=== PATIENT | male | born 1945 | race Caucasian/White ===

== ENCOUNTER → 2021-11-18 | Outpatient (REF) | payer MEDICARE | LOC: M SMT PRO 09:10 | PROVIDERS: ATTEND Urology | DX: C61 Malignant neoplasm of prostate (principal); R97.20 Elevated prostate specific antigen [PSA] ==

== ENCOUNTER → 2021-12-22 | Outpatient (CLI) | payer MEDICARE ==
[~2021-12-22] MED LIST: AMLO1TAB25; CARV3.12; INDA125TA; LISI40TA4; OMEP-173; ROSU40TA4; WARF-20; ZOLO100T
== END ==
LOC: M ONCR 14:19
PROVIDERS: ATTEND General Practice
DX: C61 Malignant neoplasm of prostate (principal); Z79.01 Long term (current) use of anticoagulants; Z80.42 Family history of malignant neoplasm of prostate; Z87.891 Personal history of nicotine dependence; Z88.0 Allergy status to penicillin

== ENCOUNTER 2021-12-29 13:48 | Outpatient (RCR) | payer MEDICARE | END 2022-01-07 | LOC: M ONCR 13:48 | PROVIDERS: ATTEND General Practice | DX: C61 Malignant neoplasm of prostate (principal) ==

== ENCOUNTER 2022-02-05 14:21 | Outpatient (RCR) | payer MEDICARE ==
[2022-02-08] MEDS ORDERED: FLOM0.4C39 PO ×2 (15:16)
== END 2022-02-06 ==
LOC: M ONCR 14:21
PROVIDERS: ATTEND General Practice
DX: C61 Malignant neoplasm of prostate (principal)

== ENCOUNTER 2022-02-18 14:21 | Outpatient (RCR) | payer MEDICARE ==
[~2022-02-18 14:21] MED LIST changes: +FLOM0.4C39 PO
== END 2022-03-09 ==
LOC: M ONCR 14:21
PROVIDERS: ATTEND General Practice
DX: C61 Malignant neoplasm of prostate (principal)

== ENCOUNTER → 2022-05-28 | Outpatient (CLI) | payer MEDICARE ==
[~2022-05-28] MED LIST changes: +INDA1.253; -INDA125TA
== END ==
LOC: M ONCR 14:21
PROVIDERS: ATTEND General Practice
DX: C61 Malignant neoplasm of prostate (principal); Z92.3 Personal history of irradiation; Z87.891 Personal history of nicotine dependence; Z88.0 Allergy status to penicillin; Z79.899 Other long term (current) drug therapy

== ENCOUNTER → 2022-09-10 | Outpatient (REF) | payer MEDICARE | LOC: M SMT 17:22 | PROVIDERS: ATTEND Urology | DX: D18.01 Hemangioma of skin and subcutaneous tissue (principal) ==

== ENCOUNTER → 2022-12-01 | Outpatient (CLI) | payer MEDICARE | LOC: M ONCR 12:52 | PROVIDERS: ATTEND Specialist | DX: C61 Malignant neoplasm of prostate (principal); Z79.01 Long term (current) use of anticoagulants; Z79.818 Long term (current) use of other agents affecting estrogen receptors and estrogen levels; Z79.899 Other long term (current) drug therapy; Z87.891 Personal history of nicotine dependence; Z88.0 Allergy status to penicillin; Z92.3 Personal history of irradiation ==

== ENCOUNTER 2023-05-25 12:56 | Observation (INO) | payer MEDICARE ==
[2023-05-25] VITALS (15 sets, daily range): BP systolic 130–178; BP diastolic 60–78; TEMP 97.9–99.5; O2SAT 88–97
[~2023-05-25] VITALS: Ht 162.6 cm; Wt 61.4 kg
[~2023-05-25 12:56] MED LIST changes: -AMLO1TAB25; +AMLO1TAB25 PO; -CARV3.12; +CARV3.12 PO; -LISI40TA4; +LISI40TA4 PO; -OMEP-173; +OMEP-173 PO; -ROSU40TA4; +ROSU40TA4 PO; -ZOLO100T; +ZOLO100T PO
[2023-05-25 13:38] LABS: BASO # 0.1 10^3/uL (0.0-0.2); BASO % 0.8 % (0.0-1.0); EOS # 0.1 10^3/uL (0.0-0.5); EOS % 1.7 % (0.0-3.0); HEMATOCRIT 23.1 % (42.0-52.0); LYMPH # 0.5 10^3/uL (1.5-5.0); LYMPH % 7.1 % (24.0-44.0); MEAN CORPUSCULAR HEMOGLOBIN 27.1 pg (27.0-33.0); MEAN CORPUSCULAR VOLUME 93.5 fl (80.0-96.0); MONO # 0.7 10^3/uL (0.0-0.8); MONO % 10.6 % (2.0-8.0); NEUTROPHILS % 79.2 % (36.0-66.0); PLATELET COUNT, AUTOMATED 274 10^3/uL (150-450); RED BLOOD COUNT 2.47 10^6/uL (4.30-6.10); WHITE BLOOD COUNT 6.3 10^3/uL (4.0-10.0)
[2023-05-25 13:44] LABS: HEMOGLOBIN 6.7 g/dl (13.5-17.5)
[2023-05-25 14:05] LABS: ALKALINE PHOSPHATASE 94 U/L (46-116); ALT/SGPT 14 U/L (7.0-40); AST/SGOT 11 U/L (<34); BILIRUBIN,DIRECT 0.2 MG/DL (<0.4); BILIRUBIN,TOTAL 0.4 MG/DL (0.3-1.2); BLOOD UREA NITROGEN 14 MG/DL (9-23); CALCIUM LEVEL 8.8 MG/DL (8.3-10.6); CARBON DIOXIDE LEVEL 25 MMOL/L (20-31); CHLORIDE LEVEL 106 MMOL/L (98-107); CK-MB VALUE MASS < 1.0 NG/ML (<3.6); CPK CREATINE PHOSPHOKINASE 35 U/L (46-171); CREATININE FOR GFR 0.73 MG/DL (0.70-1.30); GLOMERULAR FILTRATION RATE > 60.0 (>42); GLUCOSE, FASTING 101 MG/DL (74-106); MB/CK RELATIVE INDEX 2.85 (< OR =4); SODIUM LEVEL 137 MMOL/L (136-145); TOTAL PROTEIN 5.9 G/DL (5.7-8.2)
[2023-05-25 14:07] LABS: THYROID STIMULATING HORMONE 0.842 uIU/ML (0.55-4.78)
[2023-05-25 14:10] LABS: RSV AMPLIFICATION NEGATIVE (NEGATIVE)
[2023-05-25] MEDS ORDERED: MED REC IN PROGRESS XX SCH (14:50)
[2023-05-25 15:04] LABS: INR 1.48; PROTHROMBIN TIME 17.5 SECONDS (12.5-14.5)
[2023-05-25 15:05] LABS: PARTIAL THROMBOPLASTIN TIME 43.7 SECONDS (24.8-34.2)
[2023-05-25] MEDS ORDERED: ACETAMINOPHEN TAB 650MG DOSE (2X325MG) PO PRN (15:30)
[2023-05-25] MEDS ORDERED: FERR32TA PO (15:57)
[2023-05-25] MEDS ORDERED: LEUP7.5KIT IM (15:57)
[2023-05-25] MEDS ORDERED: OYST1TAB PO (15:57)
[2023-05-25] MEDS ORDERED: PRES1CAP PO (15:57)
[2023-05-25] MEDS ORDERED: FURO20TA2 PO (15:57)
[2023-05-25] MEDS ORDERED: ELIQ5TAB PO (15:57)
[2023-05-25] MEDS ORDERED: HOME MED LIST COMPLETE! XX SCH (16:05)
[2023-05-25] MEDS ORDERED: FUROSEMIDE 40MG/4ML VIAL IV ONE (20:10)
[2023-05-25] MEDS: CARVedilol 3.125 MG TAB PO SCH (20:29)
[2023-05-25] MEDS ORDERED: IPRATROPIUM 0.5MG/ALBUTEROL 2.5MG INH SOL UD 3ML (DUONEB) NEB PRN (20:45)
[2023-05-25] MEDS ORDERED: ROSUVASTATIN 10 MG TAB (CRESTOR) PO SCH (21:00)
[2023-05-26 06:00] VITALS: BP 130/58; TEMP 98.1; O2SAT 92
[2023-05-26 06:31] LABS: BLOOD UREA NITROGEN 11 MG/DL (9-23); CALCIUM LEVEL 8.4 MG/DL (8.3-10.6); CARBON DIOXIDE LEVEL 25 MMOL/L (20-31); CHLORIDE LEVEL 103 MMOL/L (98-107); CREATININE FOR GFR 0.66 MG/DL (0.70-1.30); GLOMERULAR FILTRATION RATE > 60.0 (>42); GLUCOSE, FASTING 92 MG/DL (74-106); MAGNESIUM LEVEL 1.9 MG/DL (1.8-2.4); POTASSIUM SERUM 3.3 MMOL/L (3.5-5.1); SODIUM LEVEL 137 MMOL/L (136-145)
[2023-05-26 07:16] LABS: HEMATOCRIT 29.6 % (42.0-52.0); MEAN CORPUSCULAR HEMOGLOBIN 27.9 pg (27.0-33.0); MEAN CORPUSCULAR HGB CONC 31.4 g/dl (32.0-36.5); MEAN CORPUSCULAR VOLUME 88.9 fl (80.0-96.0); PLATELET COUNT, AUTOMATED 243 10^3/uL (150-450); RED BLOOD COUNT 3.33 10^6/uL (4.30-6.10); WHITE BLOOD COUNT 8.2 10^3/uL (4.0-10.0)
[2023-05-26 07:47] LABS: HEMOGLOBIN 9.3 g/dl (13.5-17.5)
[2023-05-26 09:00] VITALS: BP 137/60; O2SAT 90
[2023-05-26] MEDS ORDERED: FUROSEMIDE 20 MG TAB PO SCH (09:00)
[2023-05-26] MEDS ORDERED: OYSTER SHELL CALCIUM 500 MG TAB PO SCH (09:00)
[2023-05-26] MEDS ORDERED: SERTRALINE 100 MG TAB PO SCH (09:00)
[2023-05-26] MEDS ORDERED: OMEPRAZOLE 20MG CAP PO SCH (09:00)
[2023-05-26] MEDS ORDERED: lisinopriL 40MG TAB PO SCH (09:00)
[2023-05-26 09:02] VITALS: BP 137/60
[2023-05-26] MEDS: CARVedilol 3.125 MG TAB PO SCH (09:02)
[2023-05-26 14:00] VITALS: BP 103/54; TEMP 98.1; O2SAT 92
[2023-05-26 14:36] LABS: HEMATOCRIT 32.6 % (42.0-52.0); HEMOGLOBIN 10.1 g/dl (13.5-17.5)
[2023-05-26] MEDS ORDERED: ELIQ2.5T PO (14:39)
[2023-05-27] MEDS ORDERED: FERROUS GLUCONATE 324 MG TAB PO SCH (09:00)
[2023-06-01 15:55] LABS: PROSTATIC SPECIFIC AG MONITOR 0.04 NG/ML (< 4.00)
== END 2023-05-26 16:20 | disposition home or self-care (01) ==
LOC: M ED 12:56 → EDBD 12:56 → M ED INP 15:29 → M MSPAV 16:57
PROVIDERS: ADMIT Family Medicine; ATTEND Family Medicine
DX: D50.0 Iron deficiency anemia secondary to blood loss (chronic) (principal); K92.2 Gastrointestinal hemorrhage, unspecified; Z79.01 Long term (current) use of anticoagulants; K58.9 Irritable bowel syndrome, unspecified; C61 Malignant neoplasm of prostate; Z92.3 Personal history of irradiation; I48.91 Unspecified atrial fibrillation; Z86.73 Personal history of transient ischemic attack (TIA), and cerebral infarction without residual deficits; R06.00 Dyspnea, unspecified; I10 Essential (primary) hypertension; K21.9 Gastro-esophageal reflux disease without esophagitis; E78.5 Hyperlipidemia, unspecified; F41.9 Anxiety disorder, unspecified; Z88.0 Allergy status to penicillin; Z79.899 Other long term (current) drug therapy; Z79.890 Hormone replacement therapy
CPT/HCPCS: 36415; 36430; 71045; 80048; 80076; 82550; 82553; 83605; 83735; 83880; 84153; 84436; 84443; 84484; 85014; 85018; 85025; 85027; 85610; 85730; 86850; 86900; 86901; 86920; 87631; 93005; 93041; 94760; 96374; 99285; G0378; J1940; P9016

== ENCOUNTER 2023-08-13 15:32 | Observation (INO) | payer MEDICARE ==
[~2023-08-13] VITALS: Ht 160 cm; Wt 58.8 kg
[~2023-08-13 15:32] MED LIST changes: +ELIQ2.5T PO; +ELIQ5TAB PO; +FERR32TA PO; +FURO20TA2 PO; +IRON27TA2 PO; +LEUP7.5KIT IM; +OYST1TAB PO; +POTA-298 PO; +PRES10CA2 PO; +PRES1CAP PO
[2023-08-13 17:13] LABS: BASO # 0.1 10^3/uL (0.0-0.2); BASO % 0.8 % (0.0-1.0); EOS # 0.1 10^3/uL (0.0-0.5); EOS % 1.9 % (0.0-3.0); HEMATOCRIT 25.6 % (42.0-52.0); HEMOGLOBIN 7.3 g/dl (13.5-17.5); LYMPH # 0.5 10^3/uL (1.5-5.0); LYMPH % 7.8 % (24.0-44.0); MEAN CORPUSCULAR HEMOGLOBIN 24.6 pg (27.0-33.0); MEAN CORPUSCULAR HGB CONC 28.5 g/dl (32.0-36.5); MEAN CORPUSCULAR VOLUME 86.2 fl (80.0-96.0); MONO # 0.6 10^3/uL (0.0-0.8); MONO % 9.9 % (2.0-8.0); NEUTROPHILS % 79.1 % (36.0-66.0); PLATELET COUNT, AUTOMATED 295 10^3/uL (150-450); RED BLOOD COUNT 2.97 10^6/uL (4.30-6.10); WHITE BLOOD COUNT 6.3 10^3/uL (4.0-10.0)
[2023-08-13 17:27] LABS: INR 1.24; PROTHROMBIN TIME 15.2 SECONDS (12.5-14.5)
[2023-08-13 17:28] LABS: PARTIAL THROMBOPLASTIN TIME 31.8 SECONDS (24.8-34.2)
[2023-08-13 17:35] LABS: RSV AMPLIFICATION NEGATIVE (NEGATIVE)
[2023-08-13 17:36] LABS: ALBUMIN 3.3 G/DL (3.2-5.2); ALKALINE PHOSPHATASE 85 U/L (46-116); ALT/SGPT 21 U/L (7.0-40); AST/SGOT 18 U/L (<34); BILIRUBIN,DIRECT 0.1 MG/DL (<0.4); BILIRUBIN,TOTAL 0.4 MG/DL (0.3-1.2); BLOOD UREA NITROGEN 20 MG/DL (9-23); CALCIUM LEVEL 8.7 MG/DL (8.3-10.6); CARBON DIOXIDE LEVEL 25 MMOL/L (20-31); CHLORIDE LEVEL 108 MMOL/L (98-107); CREATININE FOR GFR 0.77 MG/DL (0.70-1.30); GLOMERULAR FILTRATION RATE > 60.0 (>42); GLUCOSE, FASTING 97 MG/DL (74-106); IRON (FE) 10 UG/DL (65-175); PERCENT SATURATION 2.6 % (19.7-50.0); POTASSIUM SERUM 4.1 MMOL/L (3.5-5.1); SODIUM LEVEL 142 MMOL/L (136-145); TOTAL IRON BINDING CAPACITY 382 UG/DL (250-425); TOTAL PROTEIN 6.1 G/DL (5.7-8.2)
[2023-08-13] MEDS ORDERED: VITACAP8 PO (17:47)
[2023-08-13] MEDS ORDERED: ACETAMINOPHEN TAB 650MG DOSE (2X325MG) PO PRN (18:25)
[2023-08-13] MEDS ORDERED: ACETAMINOPHEN TAB 650MG DOSE (2X325MG) PO ONE (18:55)
[2023-08-13] MEDS ORDERED: diphenhydrAMINE 25MG CAP PO ONE (18:55)
[2023-08-13] MEDS ORDERED: NS 1,000 ML IV SCH (18:55)
[2023-08-13] MEDS ORDERED: HOME MED LIST COMPLETE! XX SCH (19:30)
[2023-08-13 20:10] VITALS: BP 174/88; TEMP 97.4; O2SAT 93
[2023-08-13] MEDS: ROSUVASTATIN 10 MG TAB (CRESTOR) PO SCH (21:08)
[2023-08-13] MEDS: CARVedilol 3.125 MG TAB PO SCH (21:09)
[2023-08-13] MEDS: APIXABAN 2.5 MG TAB (ELIQUIS) PO SCH (21:09)
[2023-08-13 21:50] VITALS: BP 132/73; TEMP 98; O2SAT 92
[2023-08-13 22:10] VITALS: BP 129/64; TEMP 98.3; O2SAT 94
[2023-08-13 23:02] VITALS: BP 138/57; TEMP 97.8; O2SAT 96
[2023-08-14] VITALS (13 sets, daily range): BP systolic 104–163; BP diastolic 54–87; TEMP 97.4–98.4; O2SAT 92–97
[2023-08-14 05:14] LABS: HEMATOCRIT 29.1 % (42.0-52.0); MEAN CORPUSCULAR HEMOGLOBIN 26.6 pg (27.0-33.0); MEAN CORPUSCULAR HGB CONC 30.9 g/dl (32.0-36.5); MEAN CORPUSCULAR VOLUME 86.1 fl (80.0-96.0); PLATELET COUNT, AUTOMATED 240 10^3/uL (150-450); RED BLOOD COUNT 3.38 10^6/uL (4.30-6.10); WHITE BLOOD COUNT 5.5 10^3/uL (4.0-10.0)
[2023-08-14 05:26] LABS: ALKALINE PHOSPHATASE 75 U/L (46-116); ALT/SGPT 17 U/L (7.0-40); AST/SGOT 20 U/L (<34); BILIRUBIN,TOTAL 0.9 MG/DL (0.3-1.2); BLOOD UREA NITROGEN 17 MG/DL (9-23); CALCIUM LEVEL 8.2 MG/DL (8.3-10.6); CARBON DIOXIDE LEVEL 24 MMOL/L (20-31); CHLORIDE LEVEL 108 MMOL/L (98-107); GLOMERULAR FILTRATION RATE > 60.0 (>42); GLUCOSE, FASTING 146 MG/DL (74-106); POTASSIUM SERUM 3.4 MMOL/L (3.5-5.1); SODIUM LEVEL 141 MMOL/L (136-145); TOTAL PROTEIN 5.4 G/DL (5.7-8.2)
[2023-08-14 07:32] LABS: FERRITIN 19.1 NG/ML (10.5-307.3)
[2023-08-14] MEDS ORDERED: POTASSIUM CHLORIDE 10MEQ SR TABLET PO ONE ×2 (09:05→13:00)
[2023-08-14] MEDS: lisinopriL 40MG TAB PO SCH (09:09)
[2023-08-14] MEDS: FUROSEMIDE 20 MG TAB PO SCH (09:09)
[2023-08-14] MEDS: SERTRALINE 100 MG TAB PO SCH (09:09)
[2023-08-14] MEDS: OMEPRAZOLE 20MG CAP PO SCH (09:09)
[2023-08-14] MEDS: CARVedilol 3.125 MG TAB PO SCH ×2 (09:09→20:33)
[2023-08-14] MEDS: APIXABAN 2.5 MG TAB (ELIQUIS) PO SCH ×2 (09:09→20:32)
[2023-08-14] MEDS ORDERED: FUROSEMIDE 20MG/2ML VIAL IV ONE (10:00)
[2023-08-14] MEDS ORDERED: INFLUENZA QUADRIVALENT PF VACCINE 0.5ML SYRINGE IM.IMMUN ONE (12:00)
[2023-08-14] MEDS ORDERED: FLUZONE HIGH DOSE(65YR UP)QUAD/PF 240MCG/0.7ML SYRINGE IM.IMMUN ONE (12:00)
[2023-08-14 12:10] LABS: HEMATOCRIT 30.8 % (42.0-52.0); HEMOGLOBIN 9.3 g/dl (13.5-17.5)
[2023-08-14 19:15] LABS: HEMATOCRIT 32.1 % (42.0-52.0); HEMOGLOBIN 9.8 g/dl (13.5-17.5); MEAN CORPUSCULAR HEMOGLOBIN 26.1 pg (27.0-33.0); MEAN CORPUSCULAR HGB CONC 30.5 g/dl (32.0-36.5); MEAN CORPUSCULAR VOLUME 85.4 fl (80.0-96.0); PLATELET COUNT, AUTOMATED 269 10^3/uL (150-450); RED BLOOD COUNT 3.76 10^6/uL (4.30-6.10); WHITE BLOOD COUNT 6.6 10^3/uL (4.0-10.0)
[2023-08-14 19:38] LABS: BLOOD UREA NITROGEN 17 MG/DL (9-23); CALCIUM LEVEL 8.5 MG/DL (8.3-10.6); CARBON DIOXIDE LEVEL 25 MMOL/L (20-31); CHLORIDE LEVEL 109 MMOL/L (98-107); GLOMERULAR FILTRATION RATE > 60.0 (>42); GLUCOSE, FASTING 140 MG/DL (74-106); POTASSIUM SERUM 3.6 MMOL/L (3.5-5.1); SODIUM LEVEL 142 MMOL/L (136-145)
[2023-08-14] MEDS: ROSUVASTATIN 10 MG TAB (CRESTOR) PO SCH (20:32)
[2023-08-15 05:02] VITALS: BP 122/60; TEMP 98.1; O2SAT 95
[2023-08-15 05:57] LABS: BLOOD UREA NITROGEN 14 MG/DL (9-23); CALCIUM LEVEL 8.5 MG/DL (8.3-10.6); CARBON DIOXIDE LEVEL 23 MMOL/L (20-31); CHLORIDE LEVEL 111 MMOL/L (98-107); CREATININE FOR GFR 0.65 MG/DL (0.70-1.30); GLOMERULAR FILTRATION RATE > 60.0 (>42); GLUCOSE, FASTING 100 MG/DL (74-106); POTASSIUM SERUM 3.6 MMOL/L (3.5-5.1); SODIUM LEVEL 143 MMOL/L (136-145)
[2023-08-15 06:15] LABS: BASO # 0.1 10^3/uL (0.0-0.2); BASO % 0.9 % (0.0-1.0); EOS # 0.2 10^3/uL (0.0-0.5); EOS % 3.5 % (0.0-3.0); HEMATOCRIT 29.7 % (42.0-52.0); HEMOGLOBIN 9.1 g/dl (13.5-17.5); LYMPH # 0.5 10^3/uL (1.5-5.0); LYMPH % 7.1 % (24.0-44.0); MEAN CORPUSCULAR HEMOGLOBIN 26.3 pg (27.0-33.0); MEAN CORPUSCULAR HGB CONC 30.6 g/dl (32.0-36.5); MEAN CORPUSCULAR VOLUME 85.8 fl (80.0-96.0); MONO # 0.8 10^3/uL (0.0-0.8); MONO % 11.3 % (2.0-8.0); NEUTROPHILS # 5.3 10^3/uL (1.5-8.5); NEUTROPHILS % 76.8 % (36.0-66.0); PLATELET COUNT, AUTOMATED 250 10^3/uL (150-450); RED BLOOD COUNT 3.46 10^6/uL (4.30-6.10); WHITE BLOOD COUNT 6.9 10^3/uL (4.0-10.0)
[2023-08-15] MEDS ORDERED: IRON27TA2 PO (07:12)
[2023-08-15] MEDS ORDERED: COLA100C5 PO (07:12)
[2023-08-15] MEDS: OMEPRAZOLE 20MG CAP PO SCH (08:42)
[2023-08-15] MEDS: APIXABAN 2.5 MG TAB (ELIQUIS) PO SCH (08:42)
[2023-08-15] MEDS: SERTRALINE 100 MG TAB PO SCH (08:42)
[2023-08-15] MEDS: FUROSEMIDE 20 MG TAB PO SCH (08:42)
[2023-08-15] MEDS: CARVedilol 3.125 MG TAB PO SCH (08:43)
[2023-08-15 08:44] VITALS: BP 163/70
[2023-08-15] MEDS: lisinopriL 40MG TAB PO SCH (08:44)
[2023-08-15] MEDS ORDERED: INFLUENZA QUADRIVALENT PF VACCINE 0.5ML SYRINGE IM.IMMUN ONE (11:00)
== END 2023-08-15 11:50 | disposition home or self-care (01) ==
LOC: M ED 15:32 → EDBD 15:32 → M ED INP 15:33 → ENRESERV 19:26 → M PCU 19:58 → M MS5PR 08-14 15:49
PROVIDERS: ADMIT Family Medicine; ATTEND Internal Medicine Nephrology
DX: D50.0 Iron deficiency anemia secondary to blood loss (chronic) (principal); K92.2 Gastrointestinal hemorrhage, unspecified; K62.7 Radiation proctitis; K57.90 Diverticulosis of intestine, part unspecified, without perforation or abscess without bleeding; K63.5 Polyp of colon; I48.19 Other persistent atrial fibrillation; Z86.73 Personal history of transient ischemic attack (TIA), and cerebral infarction without residual deficits; E87.70 Fluid overload, unspecified; I10 Essential (primary) hypertension; E78.5 Hyperlipidemia, unspecified; F41.9 Anxiety disorder, unspecified; F32.A Depression, unspecified; R06.02 Shortness of breath; R53.1 Weakness; Z88.0 Allergy status to penicillin; Z79.899 Other long term (current) drug therapy; Z79.01 Long term (current) use of anticoagulants; Z23 Encounter for immunization
CPT/HCPCS: 36415; 36430; 71045; 80048; 80053; 80076; 82728; 83550; 85014; 85018; 85025; 85027; 85384; 85610; 85730; 86850; 86900; 86901; 86920; 87631; 90686; 93005; 93041; 94760; 96374; 99285; G0008; G0378; J1940; P9016

== ENCOUNTER 2023-10-09 14:12 | Observation (INO) | payer MEDICARE ==
[~2023-10-09] VITALS: Ht 162.6 cm; Wt 59.4 kg
[2023-10-09] VITALS (9 sets, daily range): BP systolic 133–164; BP diastolic 61–78; TEMP 97–98.8; O2SAT 95–100
[~2023-10-09 14:12] MED LIST changes: +COLA100C5 PO; +VITACAP8 PO
[2023-10-09 15:10] LABS: BASO # 0.1 10^3/uL (0.0-0.2); BASO % 0.9 % (0.0-1.0); EOS # 0.1 10^3/uL (0.0-0.5); EOS % 1.4 % (0.0-3.0); LYMPH # 0.5 10^3/uL (1.5-5.0); LYMPH % 7.4 % (24.0-44.0); MEAN CORPUSCULAR HEMOGLOBIN 30.3 pg (27.0-33.0); MEAN CORPUSCULAR HGB CONC 29.6 g/dl (32.0-36.5); MEAN CORPUSCULAR VOLUME 102.3 fl (80.0-96.0); MONO # 0.6 10^3/uL (0.0-0.8); MONO % 8.5 % (2.0-8.0); NEUTROPHILS # 5.4 10^3/uL (1.5-8.5); NEUTROPHILS % 81.2 % (36.0-66.0); PLATELET COUNT, AUTOMATED 279 10^3/uL (150-450); RED BLOOD COUNT 2.64 10^6/uL (4.30-6.10); WHITE BLOOD COUNT 6.6 10^3/uL (4.0-10.0)
[2023-10-09 15:23] LABS: LIPASE 40 U/L (12-53)
[2023-10-09 15:25] LABS: ALBUMIN 3.4 G/DL (3.2-5.2); ALKALINE PHOSPHATASE 95 U/L (46-116); ALT/SGPT 30 U/L (7.0-40); AST/SGOT 18 U/L (<34); BILIRUBIN,DIRECT < 0.1 MG/DL (<0.4); BILIRUBIN,TOTAL 0.4 MG/DL (0.3-1.2); BLOOD UREA NITROGEN 17 MG/DL (9-23); CALCIUM LEVEL 8.7 MG/DL (8.3-10.6); CARBON DIOXIDE LEVEL 27 MMOL/L (20-31); CHLORIDE LEVEL 107 MMOL/L (98-107); CREATININE FOR GFR 0.75 MG/DL (0.70-1.30); GLOMERULAR FILTRATION RATE > 60.0 (>42); GLUCOSE, FASTING 98 MG/DL (74-106); POTASSIUM SERUM 4.1 MMOL/L (3.5-5.1); SODIUM LEVEL 139 MMOL/L (136-145)
[2023-10-09 15:32] LABS: INR 1.17; PARTIAL THROMBOPLASTIN TIME 31.2 SECONDS (24.8-34.2); PROTHROMBIN TIME 14.5 SECONDS (12.5-14.5)
[2023-10-09] MEDS ORDERED: MED REC IN PROGRESS XX SCH (16:30)
[2023-10-09] MEDS ORDERED: ACETAMINOPHEN TAB 650MG DOSE (2X325MG) PO PRN (16:40)
[2023-10-09] MEDS ORDERED: VITATAB73 PO (17:11)
[2023-10-09] MEDS ORDERED: HOME MED LIST COMPLETE! XX SCH (17:15)
[2023-10-09] MEDS ORDERED: ROSUVASTATIN 10 MG TAB (CRESTOR) PO SCH (21:00)
[2023-10-09] MEDS: CARVedilol 3.125 MG TAB PO SCH (21:17)
[2023-10-09] MEDS: APIXABAN 2.5 MG TAB (ELIQUIS) PO SCH (21:17)
[2023-10-10 03:51] VITALS: BP 144/66; TEMP 98.3; O2SAT 95
[2023-10-10 06:30] LABS: BASO # 0.1 10^3/uL (0.0-0.2); EOS # 0.1 10^3/uL (0.0-0.5); EOS % 1.6 % (0.0-3.0); HEMATOCRIT 31.3 % (42.0-52.0); HEMOGLOBIN 9.8 g/dl (13.5-17.5); LYMPH # 0.4 10^3/uL (1.5-5.0); LYMPH % 7.6 % (24.0-44.0); MEAN CORPUSCULAR HEMOGLOBIN 29.7 pg (27.0-33.0); MEAN CORPUSCULAR HGB CONC 31.3 g/dl (32.0-36.5); MEAN CORPUSCULAR VOLUME 94.8 fl (80.0-96.0); MONO # 0.6 10^3/uL (0.0-0.8); MONO % 9.8 % (2.0-8.0); NEUTROPHILS # 4.6 10^3/uL (1.5-8.5); NEUTROPHILS % 79.7 % (36.0-66.0); PLATELET COUNT, AUTOMATED 217 10^3/uL (150-450); WHITE BLOOD COUNT 5.8 10^3/uL (4.0-10.0)
[2023-10-10 06:56] LABS: BLOOD UREA NITROGEN 17 MG/DL (9-23); CALCIUM LEVEL 8.4 MG/DL (8.3-10.6); CARBON DIOXIDE LEVEL 25 MMOL/L (20-31); CHLORIDE LEVEL 111 MMOL/L (98-107); CREATININE FOR GFR 0.68 MG/DL (0.70-1.30); GLOMERULAR FILTRATION RATE > 60.0 (>42); GLUCOSE, FASTING 98 MG/DL (74-106); POTASSIUM SERUM 4.2 MMOL/L (3.5-5.1); SODIUM LEVEL 142 MMOL/L (136-145)
[2023-10-10 08:00] VITALS: BP 168/74; TEMP 97.9; O2SAT 98
[2023-10-10 08:46] VITALS: BP 146/86
[2023-10-10] MEDS: APIXABAN 2.5 MG TAB (ELIQUIS) PO SCH (08:46)
[2023-10-10] MEDS: CARVedilol 3.125 MG TAB PO SCH (08:46)
[2023-10-10] MEDS ORDERED: FUROSEMIDE 20 MG TAB PO SCH (09:00)
[2023-10-10] MEDS ORDERED: SERTRALINE 100 MG TAB PO SCH (09:00)
[2023-10-10] MEDS ORDERED: lisinopriL 40MG TAB PO SCH (09:00)
[2023-10-10] MEDS ORDERED: OMEPRAZOLE 20MG CAP PO SCH (09:00)
== END 2023-10-10 10:44 | disposition home or self-care (01) ==
LOC: EDBD 14:12 → M ED 14:12 → M ED INP 14:13 → M PCU 17:58
PROVIDERS: ADMIT Internal Medicine; ATTEND Internal Medicine
DX: D64.9 Anemia, unspecified (principal); K62.5 Hemorrhage of anus and rectum; K62.7 Radiation proctitis; Z85.46 Personal history of malignant neoplasm of prostate; I48.91 Unspecified atrial fibrillation; Z86.73 Personal history of transient ischemic attack (TIA), and cerebral infarction without residual deficits; I10 Essential (primary) hypertension; E78.5 Hyperlipidemia, unspecified; K21.9 Gastro-esophageal reflux disease without esophagitis; F39 Unspecified mood [affective] disorder; R06.02 Shortness of breath; Z87.891 Personal history of nicotine dependence; Z88.0 Allergy status to penicillin; Z79.899 Other long term (current) drug therapy; Z79.01 Long term (current) use of anticoagulants
CPT/HCPCS: 36415; 36430; 80048; 80076; 83690; 83735; 85025; 85610; 85730; 86850; 86900; 86901; 86920; 87635; 93005; 93041; 97161; 97530; 99285; G0378; P9016

== ENCOUNTER 2023-10-29 14:23 | Observation (INO) | payer MEDICARE ==
[~2023-10-29] VITALS: Ht 160 cm; Wt 60.5 kg
[2023-10-29] VITALS (8 sets, daily range): BP systolic 130–176; BP diastolic 59–81; TEMP 97.4–99.4; O2SAT 91–96
[~2023-10-29 14:23] MED LIST changes: +VITATAB73 PO
[2023-10-29 15:19] LABS: BASO # 0.1 10^3/uL (0.0-0.2); BASO % 0.7 % (0.0-1.0); EOS # 0.1 10^3/uL (0.0-0.5); EOS % 1.4 % (0.0-3.0); HEMATOCRIT 23.8 % (42.0-52.0); HEMOGLOBIN 7.2 g/dl (13.5-17.5); LYMPH # 0.4 10^3/uL (1.5-5.0); LYMPH % 5.4 % (24.0-44.0); MEAN CORPUSCULAR HEMOGLOBIN 28.5 pg (27.0-33.0); MEAN CORPUSCULAR HGB CONC 30.3 g/dl (32.0-36.5); MEAN CORPUSCULAR VOLUME 94.1 fl (80.0-96.0); MONO # 0.6 10^3/uL (0.0-0.8); MONO % 8.5 % (2.0-8.0); NEUTROPHILS # 5.9 10^3/uL (1.5-8.5); NEUTROPHILS % 83.6 % (36.0-66.0); PLATELET COUNT, AUTOMATED 308 10^3/uL (150-450); RED BLOOD COUNT 2.53 10^6/uL (4.30-6.10)
[2023-10-29 15:29] LABS: ALBUMIN 3.3 G/DL (3.2-5.2); ALKALINE PHOSPHATASE 85 U/L (46-116); ALT/SGPT 23 U/L (7.0-40); AST/SGOT 17 U/L (<34); BILIRUBIN,TOTAL 0.4 MG/DL (0.3-1.2); BLOOD UREA NITROGEN 15 MG/DL (9-23); CALCIUM LEVEL 8.6 MG/DL (8.3-10.6); CARBON DIOXIDE LEVEL 24 MMOL/L (20-31); CHLORIDE LEVEL 110 MMOL/L (98-107); CREATININE FOR GFR 0.79 MG/DL (0.70-1.30); GLOMERULAR FILTRATION RATE > 60.0 (>42); GLUCOSE, FASTING 98 MG/DL (74-106); POTASSIUM SERUM 4.3 MMOL/L (3.5-5.1); SODIUM LEVEL 141 MMOL/L (136-145); TOTAL PROTEIN 5.9 G/DL (5.7-8.2)
[2023-10-29 15:31] LABS: INR 1.28; PROTHROMBIN TIME 15.6 SECONDS (12.5-14.5)
[2023-10-29 15:32] LABS: PARTIAL THROMBOPLASTIN TIME 33.9 SECONDS (24.8-34.2)
[2023-10-29 15:40] LABS: RSV AMPLIFICATION NEGATIVE (NEGATIVE)
[2023-10-29] MEDS ORDERED: FERR325T3 PO (17:58)
[2023-10-29] MEDS ORDERED: HOME MED LIST COMPLETE! XX SCH (18:05)
[2023-10-29] MEDS: CARVedilol 3.125 MG TAB PO SCH (20:57)
[2023-10-29] MEDS ORDERED: ROSUVASTATIN 10 MG TAB (CRESTOR) PO SCH (21:00)
[2023-10-29 22:54] LABS: HEMATOCRIT 28.2 % (42.0-52.0); HEMOGLOBIN 9.1 g/dl (13.5-17.5)
[2023-10-30 06:16] LABS: HEMATOCRIT 28.2 % (42.0-52.0); HEMOGLOBIN 8.9 g/dl (13.5-17.5); MEAN CORPUSCULAR HEMOGLOBIN 27.9 pg (27.0-33.0); MEAN CORPUSCULAR HGB CONC 31.6 g/dl (32.0-36.5); MEAN CORPUSCULAR VOLUME 88.4 fl (80.0-96.0); PLATELET COUNT, AUTOMATED 272 10^3/uL (150-450); RED BLOOD COUNT 3.19 10^6/uL (4.30-6.10); WHITE BLOOD COUNT 7.4 10^3/uL (4.0-10.0)
[2023-10-30 06:25] VITALS: BP 146/62; TEMP 98.2; O2SAT 89
[2023-10-30] MEDS ORDERED: APIXABAN 2.5 MG TAB (ELIQUIS) PO SCH (09:00)
[2023-10-30] MEDS ORDERED: FERROUS SULFATE 325MG TAB PO SCH (09:00)
[2023-10-30] MEDS ORDERED: OMEPRAZOLE 20MG CAP PO SCH (09:00)
[2023-10-30] MEDS ORDERED: FUROSEMIDE 20 MG TAB PO SCH (09:00)
[2023-10-30] MEDS ORDERED: SERTRALINE 100 MG TAB PO SCH (09:00)
[2023-10-30] MEDS ORDERED: lisinopriL 40MG TAB PO SCH (09:00)
[2023-10-30] MEDS: CARVedilol 3.125 MG TAB PO SCH (09:39)
[2023-10-30 11:35] VITALS: O2SAT 96
== END 2023-10-30 13:37 | disposition home or self-care (01) ==
LOC: M ED 14:23 → EDBD 14:23 → M ED INP 18:07 → M MSPAV 23:24
PROVIDERS: ADMIT Student in an Organized Health Care Education/Training Program; ATTEND Student in an Organized Health Care Education/Training Program
DX: D62 Acute posthemorrhagic anemia (principal); K92.2 Gastrointestinal hemorrhage, unspecified; I48.91 Unspecified atrial fibrillation; Z85.46 Personal history of malignant neoplasm of prostate; Z92.3 Personal history of irradiation; Z86.73 Personal history of transient ischemic attack (TIA), and cerebral infarction without residual deficits; Z20.822 Contact with and (suspected) exposure to COVID-19; Z88.0 Allergy status to penicillin; Z79.899 Other long term (current) drug therapy; Z79.01 Long term (current) use of anticoagulants
CPT/HCPCS: 36415; 36430; 71045; 71046; 80053; 83735; 85014; 85018; 85025; 85027; 85610; 85730; 86850; 86900; 86901; 86920; 87631; 93005; 93041; 94760; 99285; G0378; P9016

== ENCOUNTER 2023-12-19 15:01 | Inpatient (IN) | payer MEDICARE ==
[~2023-12-19] VITALS: Ht 162.6 cm; Wt 57.4 kg
[~2023-12-19 15:01] MED LIST changes: +FERR325T3 PO; +INDA1.253 PO; +LISI10TA22 PO; +MESA50SU PR; +POTA-151 PO
[2023-12-19 16:53] LABS: BASO % 0.4 % (0.0-1.0); EOS # 0.1 10^3/uL (0.0-0.5); EOS % 1.1 % (0.0-3.0); LYMPH # 0.5 10^3/uL (1.5-5.0); LYMPH % 6.4 % (24.0-44.0); MEAN CORPUSCULAR HEMOGLOBIN 22.8 pg (27.0-33.0); MEAN CORPUSCULAR HGB CONC 27.5 g/dl (32.0-36.5); MEAN CORPUSCULAR VOLUME 82.9 fl (80.0-96.0); MONO # 0.7 10^3/uL (0.0-0.8); MONO % 8.9 % (2.0-8.0); NEUTROPHILS # 6.1 10^3/uL (1.5-8.5); NEUTROPHILS % 82.5 % (36.0-66.0); PLATELET COUNT, AUTOMATED 296 10^3/uL (150-450); RED BLOOD COUNT 2.28 10^6/uL (4.30-6.10); WHITE BLOOD COUNT 7.4 10^3/uL (4.0-10.0)
[2023-12-19 17:03] LABS: HEMATOCRIT 18.9 % (42.0-52.0); HEMOGLOBIN 5.2 g/dl (13.5-17.5)
[2023-12-19 17:17] LABS: INR 1.43; PARTIAL THROMBOPLASTIN TIME 33.3 SECONDS (24.8-34.2)
[2023-12-19 17:22] LABS: ALBUMIN 3.2 G/DL (3.2-5.2); ALKALINE PHOSPHATASE 75 U/L (46-116); ALT/SGPT 14 U/L (7.0-40); AST/SGOT 14 U/L (<34); BILIRUBIN,DIRECT 0.1 MG/DL (<0.4); BILIRUBIN,TOTAL 0.4 MG/DL (0.3-1.2); BLOOD UREA NITROGEN 19 MG/DL (9-23); CALCIUM LEVEL 8.4 MG/DL (8.3-10.6); CARBON DIOXIDE LEVEL 21 MMOL/L (20-31); CHLORIDE LEVEL 107 MMOL/L (98-107); GLOMERULAR FILTRATION RATE > 60.0 (>42); GLUCOSE, FASTING 91 MG/DL (74-106); POTASSIUM SERUM 4.1 MMOL/L (3.5-5.1); SODIUM LEVEL 137 MMOL/L (136-145); TOTAL PROTEIN 5.7 G/DL (5.7-8.2)
[2023-12-19 18:07] VITALS: BP 133/61; TEMP 98.7; O2SAT 96
[2023-12-19] MEDS ORDERED: EQL50TAB2 PO (18:33)
[2023-12-19] MEDS ORDERED: LISI10TA22 PO (18:33)
[2023-12-19] MEDS ORDERED: MESA50SU PR (18:33)
[2023-12-19] MEDS ORDERED: HOME MED LIST COMPLETE! XX SCH (18:35)
[2023-12-19 20:10] VITALS: BP 133/70; TEMP 99.7; O2SAT 94
[2023-12-19 20:25] VITALS: BP 159/71; TEMP 99.1; O2SAT 94
[2023-12-19 21:44] VITALS: BP 176/80; TEMP 99; O2SAT 96
[2023-12-19 22:51] VITALS: BP 172/72; TEMP 97.8; O2SAT 94
[2023-12-19] MEDS: MESALAMINE 1,000 MG SUPP PR SCH (23:56)
[2023-12-20] VITALS (8 sets, daily range): BP systolic 107–179; BP diastolic 52–72; TEMP 98–99.4; O2SAT 93–96
[2023-12-20] MEDS: CARVedilol 3.125 MG TAB PO SCH (00:01)
[2023-12-20] MEDS: ROSUVASTATIN 10 MG TAB (CRESTOR) PO SCH (00:01)
[2023-12-20 04:08] LABS: HEMATOCRIT 30.1 % (42.0-52.0); MEAN CORPUSCULAR HEMOGLOBIN 26.2 pg (27.0-33.0); MEAN CORPUSCULAR HGB CONC 31.6 g/dl (32.0-36.5); MEAN CORPUSCULAR VOLUME 83.1 fl (80.0-96.0); PLATELET COUNT, AUTOMATED 257 10^3/uL (150-450); RED BLOOD COUNT 3.62 10^6/uL (4.30-6.10); WHITE BLOOD COUNT 8.6 10^3/uL (4.0-10.0)
[2023-12-20 04:18] LABS: HEMOGLOBIN 9.5 g/dl (13.5-17.5)
[2023-12-20 04:25] LABS: BLOOD UREA NITROGEN 19 MG/DL (9-23); CALCIUM LEVEL 7.8 MG/DL (8.3-10.6); CARBON DIOXIDE LEVEL 22 MMOL/L (20-31); CHLORIDE LEVEL 111 MMOL/L (98-107); CREATININE FOR GFR 0.76 MG/DL (0.70-1.30); GLOMERULAR FILTRATION RATE > 60.0 (>42); GLUCOSE, FASTING 94 MG/DL (74-106); POTASSIUM SERUM 4.1 MMOL/L (3.5-5.1); SODIUM LEVEL 139 MMOL/L (136-145)
[2023-12-20] MEDS: OMEPRAZOLE 20MG CAP PO SCH (09:00)
[2023-12-20] MEDS: MESALAMINE 1,000 MG SUPP PR SCH (09:00)
[2023-12-20] MEDS: PREPARATION H SUPP (HEMORRHOID) PR SCH (09:00)
[2023-12-20] MEDS ORDERED: MESA50SU PR (09:45)
[2023-12-20] MEDS ORDERED: HYDR26CR TOP (09:46)
[2023-12-20] MEDS: SERTRALINE 100 MG TAB PO SCH (09:47)
[2023-12-20] MEDS: FERROUS SULFATE 325MG TAB PO SCH (09:47)
[2023-12-20] MEDS: FUROSEMIDE 20 MG TAB PO SCH (10:05)
== END 2023-12-20 12:10 | disposition home health service (06) | DRG 378 ==
LOC: M ED 15:01 → EDBD 15:01 → M ED INP 18:09 → M PCU 22:42
PROVIDERS: ADMIT General Practice; ATTEND General Practice
PROC: 30233N1 Transfusion of Nonautologous Red Blood Cells into Peripheral Vein, Percutaneous Approach (ICD-10-PCS; principal; 2023-12-19)
DX: K62.5 Hemorrhage of anus and rectum (principal); D62 Acute posthemorrhagic anemia; I48.20 Chronic atrial fibrillation, unspecified; D68.32 Hemorrhagic disorder due to extrinsic circulating anticoagulants; K62.7 Radiation proctitis; D50.9 Iron deficiency anemia, unspecified; I10 Essential (primary) hypertension; I44.7 Left bundle-branch block, unspecified; R01.1 Cardiac murmur, unspecified; K21.9 Gastro-esophageal reflux disease without esophagitis; E78.5 Hyperlipidemia, unspecified; F41.9 Anxiety disorder, unspecified; F32.A Depression, unspecified; Z86.12 Personal history of poliomyelitis; Z87.891 Personal history of nicotine dependence; Z86.73 Personal history of transient ischemic attack (TIA), and cerebral infarction without residual deficits; Z85.46 Personal history of malignant neoplasm of prostate; Z92.3 Personal history of irradiation; Z79.01 Long term (current) use of anticoagulants; Z79.899 Other long term (current) drug therapy; Z88.0 Allergy status to penicillin; Z11.52 Encounter for screening for COVID-19

== ENCOUNTER 2023-12-23 12:42 | Day surgery (SDC) | payer MEDICARE ==
[~2023-12-23] VITALS: Ht 162.6 cm; Wt 58.6 kg
[~2023-12-23 12:42] MED LIST changes: +EQL50TAB2 PO; +HYDR26CR TOP
[2023-12-23] MEDS: NS 1,000 ML IV ONE (13:49)
[2023-12-23 15:52] VITALS: TEMP 97.4
[2023-12-23 16:10] VITALS: BP 175/75; O2SAT 99
== END 2023-12-23 16:55 | disposition home or self-care (01) ==
LOC: M SDC 12:42
PROVIDERS: ATTEND Internal Medicine Gastroenterology
DX: K62.7 Radiation proctitis (principal); K62.5 Hemorrhage of anus and rectum; K64.8 Other hemorrhoids; K64.4 Residual hemorrhoidal skin tags; I48.91 Unspecified atrial fibrillation; I25.10 Atherosclerotic heart disease of native coronary artery without angina pectoris; I10 Essential (primary) hypertension; E78.00 Pure hypercholesterolemia, unspecified; Z79.899 Other long term (current) drug therapy; Z85.46 Personal history of malignant neoplasm of prostate; Z92.3 Personal history of irradiation; Z88.0 Allergy status to penicillin; Z86.73 Personal history of transient ischemic attack (TIA), and cerebral infarction without residual deficits; Z86.711 Personal history of pulmonary embolism

== ENCOUNTER 2024-09-24 15:49 | Inpatient (IN) | payer MEDICARE ==
[~2024-09-24] VITALS: Ht 162.6 cm; Wt 61.1 kg
[~2024-09-24 15:49] MED LIST changes: +K-PHTAB4 PO; +LISI20TA33 PO; -ROSU40TA4 PO; +ROSU40TA81 PO
[2024-09-24 18:42] LABS: BASO # 0.1 10^3/uL (0.0-0.2); BASO % 0.4 % (0.0-1.0); EOS # 0.1 10^3/uL (0.0-0.5); EOS % 0.4 % (0.0-3.0); HEMATOCRIT 35.5 % (42.0-52.0); HEMOGLOBIN 11.1 g/dl (13.5-17.5); LYMPH # 0.4 10^3/uL (1.5-5.0); LYMPH % 3.1 % (24.0-44.0); MEAN CORPUSCULAR HEMOGLOBIN 27.4 pg (27.0-33.0); MEAN CORPUSCULAR HGB CONC 31.3 g/dl (32.0-36.5); MEAN CORPUSCULAR VOLUME 87.7 fl (80.0-96.0); MONO # 0.6 10^3/uL (0.0-0.8); MONO % 4.8 % (2.0-8.0); NEUTROPHILS # 11.3 10^3/uL (1.5-8.5); NEUTROPHILS % 90.9 % (36.0-66.0); PLATELET COUNT, AUTOMATED 261 10^3/uL (150-450); RED BLOOD COUNT 4.05 10^6/uL (4.30-6.10); WHITE BLOOD COUNT 12.4 10^3/uL (4.0-10.0)
[2024-09-24 18:51] LABS: INR 1.12; PARTIAL THROMBOPLASTIN TIME 34.8 SECONDS (24.8-34.2); PROTHROMBIN TIME 14.7 SECONDS (12.5-14.5)
[2024-09-24 19:02] LABS: BLOOD UREA NITROGEN 18 MG/DL (9-23); CALCIUM LEVEL 9.3 MG/DL (8.3-10.6); CARBON DIOXIDE LEVEL 25 MMOL/L (20-31); CHLORIDE LEVEL 106 MMOL/L (98-107); CREATININE FOR GFR 0.57 MG/DL (0.70-1.30); GLOMERULAR FILTRATION RATE > 60.0 (>42); GLUCOSE, FASTING 98 MG/DL (74-106); POTASSIUM SERUM 3.9 MMOL/L (3.5-5.1); SODIUM LEVEL 140 MMOL/L (136-145)
[2024-09-24] MEDS ORDERED: MORPHINE 4 MG/ML 1ML VIAL IV PRN (19:30)
[2024-09-24] MEDS: ACETAMINOPHEN *IV* 1,000 MG in IV 1 EA IV ONE (19:45)
[2024-09-24] MEDS: MORPHINE 2 MG/ML 1ML VIAL IV PRN (20:09)
[2024-09-24 20:47] LABS: PROCALCITONIN 0.09 ng/ml
[2024-09-24] MEDS ORDERED: OCUVTAB4 PO (20:51)
[2024-09-24] MEDS ORDERED: HOME MED LIST COMPLETE! XX SCH (20:55)
[2024-09-24] MEDS: NS (Normal Saline) 0.9% 1,000 ML IV SCH (22:17)
[2024-09-24] MEDS: CARVedilol 3.125 MG TAB PO SCH (22:20)
[2024-09-24] MEDS: ROSUVASTATIN 10 MG TAB (CRESTOR) PO SCH (22:21)
[2024-09-24] MEDS: DOCUSATE SODIUM 100MG CAPSULE PO SCH (22:21)
[2024-09-24] MEDS: SERTRALINE 100 MG TAB PO SCH (22:21)
[2024-09-24] MEDS: KETOROLAC TROMETHAMINE 10 MG TAB PO PRN (22:26)
[2024-09-24 22:59] VITALS: BP 172/68; TEMP 98.2; O2SAT 96
[2024-09-25] VITALS (8 sets, daily range): BP systolic 107–156; BP diastolic 54–78; TEMP 96.8–98.2; O2SAT 92–98
[2024-09-25] MEDS ORDERED: MORPHINE 2 MG/ML 1ML VIAL IV PRN (02:00)
[2024-09-25 06:30] LABS: HEMOGLOBIN 9.9 g/dl (13.5-17.5); MEAN CORPUSCULAR HEMOGLOBIN 27.8 pg (27.0-33.0); MEAN CORPUSCULAR HGB CONC 31.9 g/dl (32.0-36.5); MEAN CORPUSCULAR VOLUME 87.1 fl (80.0-96.0); PLATELET COUNT, AUTOMATED 207 10^3/uL (150-450); RED BLOOD COUNT 3.56 10^6/uL (4.30-6.10); WHITE BLOOD COUNT 7.5 10^3/uL (4.0-10.0)
[2024-09-25 06:54] LABS: BLOOD UREA NITROGEN 18 MG/DL (9-23); CALCIUM LEVEL 8.5 MG/DL (8.3-10.6); CARBON DIOXIDE LEVEL 22 MMOL/L (20-31); CHLORIDE LEVEL 107 MMOL/L (98-107); CREATININE FOR GFR 0.57 MG/DL (0.70-1.30); GLOMERULAR FILTRATION RATE > 60.0 (>42); GLUCOSE, FASTING 89 MG/DL (74-106); POTASSIUM SERUM 3.5 MMOL/L (3.5-5.1); SODIUM LEVEL 140 MMOL/L (136-145)
[2024-09-25] MEDS: HEPARIN SOD (PORCINE) 5000UNITS/ML 1ML VIAL/SYRINGE SC SCH (08:00)
[2024-09-25] MEDS: ACETAMINOPHEN 325 MG TAB PO PRN (08:07)
[2024-09-25] MEDS: lisinopriL 40MG TAB PO SCH (08:08)
[2024-09-25] MEDS ORDERED: LIDOCAINE 2% 100MG/5ML SDV (FOR ANES.) As Ordered ONE (16:04)
[2024-09-25] MEDS ORDERED: propofoL 200 MG/20 ML VIAL As Ordered ONE (16:04)
[2024-09-25] MEDS ORDERED: fentaNYL 100 MCG/2 ML INJECTION As Ordered ONE (16:04)
[2024-09-25] MEDS ORDERED: ROCURONIUM BROMIDE 50MG/5ML VIAL As Ordered ONE (16:20)
[2024-09-25] MEDS ORDERED: ONDANSETRON 4MG 2ML VIAL As Ordered ONE (16:20)
[2024-09-25] MEDS: ceFAZolin 2 GM/D5W 50 ML IV BAG As Ordered ONE (16:55)
[2024-09-25] MEDS: TRANEXAMIC ACID 100 MG/ML 10ML VIAL As Ordered ONE (17:10)
[2024-09-25] MEDS ORDERED: PHENYLephrine 500MCG 5ML (100MCG/ML) SYRINGE As Ordered ONE (17:20)
[2024-09-25] MEDS ORDERED: SUGAMMADEX SODIUM 500 MG/5 ML VIAL (BRIDION) As Ordered ONE (17:20)
[2024-09-25] MEDS ORDERED: ATROPINE SULF 0.4 MG/ML 1ML VIAL As Ordered ONE (17:33)
[2024-09-25] MEDS: VANCOMYCIN 1000MG/20ML VIAL As Ordered ONE (17:50)
[2024-09-25] MEDS ORDERED: ePHEDrine SULFATE 25 MG/5 ML(5MG/ML) SYRINGE As Ordered ONE (17:59)
[2024-09-25] MEDS ORDERED: KETOROLAC 60MG 2ML VIAL As Ordered ONE (18:25)
[2024-09-25] MEDS ORDERED: fentaNYL 100 MCG/2 ML INJECTION IV PRN (18:45)
[2024-09-25] MEDS ORDERED: HYDROMORPHONE HCL 0.5 MG/ 0.5 ML SYRINGE IV PRN (18:45)
[2024-09-25] MEDS: ONDANSETRON 4MG 2ML VIAL IV PRN (18:59)
[2024-09-25] MEDS: oxyCODONE 5MG TAB PO PRN (18:59)
[2024-09-26 00:30] VITALS: BP 123/57; TEMP 97.2; O2SAT 96
[2024-09-26 04:00] VITALS: BP 107/58; TEMP 98.1; O2SAT 95
[2024-09-26 06:05] LABS: BASO % 0.4 % (0.0-1.0); EOS % 0.1 % (0.0-3.0); HEMATOCRIT 32.7 % (42.0-52.0); HEMOGLOBIN 10.1 g/dl (13.5-17.5); LYMPH # 0.3 10^3/uL (1.5-5.0); LYMPH % 2.4 % (24.0-44.0); MEAN CORPUSCULAR HEMOGLOBIN 27.7 pg (27.0-33.0); MEAN CORPUSCULAR HGB CONC 30.9 g/dl (32.0-36.5); MEAN CORPUSCULAR VOLUME 89.6 fl (80.0-96.0); MONO # 0.8 10^3/uL (0.0-0.8); MONO % 7.1 % (2.0-8.0); NEUTROPHILS # 9.9 10^3/uL (1.5-8.5); NEUTROPHILS % 89.5 % (36.0-66.0); PLATELET COUNT, AUTOMATED 211 10^3/uL (150-450); RED BLOOD COUNT 3.65 10^6/uL (4.30-6.10); WHITE BLOOD COUNT 11.1 10^3/uL (4.0-10.0)
[2024-09-26 06:26] LABS: BLOOD UREA NITROGEN 22 MG/DL (9-23); CALCIUM LEVEL 8.6 MG/DL (8.3-10.6); CARBON DIOXIDE LEVEL 23 MMOL/L (20-31); CHLORIDE LEVEL 109 MMOL/L (98-107); CREATININE FOR GFR 0.74 MG/DL (0.70-1.30); GLOMERULAR FILTRATION RATE > 60.0 (>42); GLUCOSE, FASTING 105 MG/DL (74-106); SODIUM LEVEL 142 MMOL/L (136-145)
[2024-09-26 08:00] VITALS: BP 111/58; TEMP 97.7; O2SAT 96
[2024-09-26 08:56] LABS: IRON (FE) 16 UG/DL (65-175)
[2024-09-26 12:08] VITALS: BP 133/59; TEMP 97.5; O2SAT 95
[2024-09-26] MEDS: FERRIC CARBOXYMALTOSE INJ 750 MG, VIAL MATE ADAPTER 1 EACH in NS 100 ML IV ONE (14:14)
[2024-09-26 19:47] VITALS: BP_SYST 143; BP_SYST 150; BP_DIAS 57; BP_DIAS 58; TEMP 98.2; O2SAT 96
[2024-09-26] MEDS: APIXABAN 5 MG TAB (ELIQUIS) PO SCH (20:04)
[2024-09-27 04:38] VITALS: BP 145/56; TEMP 97.9; O2SAT 91
[2024-09-27 12:00] VITALS: BP 117/60; TEMP 97.7; O2SAT 97
[2024-09-27 20:00] VITALS: BP 156/66; TEMP 98.1; O2SAT 98
[2024-09-28 04:00] VITALS: BP 157/66; TEMP 98.1; O2SAT 95
[2024-09-28 08:25] VITALS: BP 158/65
[2024-09-28 08:29] VITALS: BP 158/65
[2024-09-28 12:00] VITALS: BP 139/79; TEMP 97.9; O2SAT 99
== END 2024-09-28 13:35 | disposition home health service (06) | DRG 522 ==
LOC: M ED 15:49 → EDBD 15:49 → M ED INP 20:30 → M MS5PR 22:45
PROVIDERS: ADMIT Student in an Organized Health Care Education/Training Program; ATTEND Student in an Organized Health Care Education/Training Program
PROC: 0SRR0J9 Replacement of Right Hip Joint, Femoral Surface with Synthetic Substitute, Cemented, Open Approach (ICD-10-PCS; principal; 2024-09-25 15:30)
DX: S72.031A Displaced midcervical fracture of right femur, initial encounter for closed fracture (principal); I48.20 Chronic atrial fibrillation, unspecified; I10 Essential (primary) hypertension; I44.7 Left bundle-branch block, unspecified; K21.9 Gastro-esophageal reflux disease without esophagitis; K57.90 Diverticulosis of intestine, part unspecified, without perforation or abscess without bleeding; E78.5 Hyperlipidemia, unspecified; F41.9 Anxiety disorder, unspecified; F32.A Depression, unspecified; W18.09XA Striking against other object with subsequent fall, initial encounter; Y92.013 Bedroom of single-family (private) house as the place of occurrence of the external cause; D50.9 Iron deficiency anemia, unspecified; Y93.89 Activity, other specified; Y99.8 Other external cause status; Z85.46 Personal history of malignant neoplasm of prostate; Z92.3 Personal history of irradiation; Z86.73 Personal history of transient ischemic attack (TIA), and cerebral infarction without residual deficits; Z87.891 Personal history of nicotine dependence; Z79.01 Long term (current) use of anticoagulants; Z79.899 Other long term (current) drug therapy; Z88.0 Allergy status to penicillin; Z86.12 Personal history of poliomyelitis

== ENCOUNTER → 2024-10-11 | Outpatient (CLI) | payer MEDICARE ==
[~2024-10-11] MED LIST changes: +OCUVTAB4 PO
== END ==
LOC: M SOG 08:57
PROVIDERS: ATTEND Physician Assistant
DX: Z53.9 Procedure and treatment not carried out, unspecified reason (principal)

== ENCOUNTER → 2024-10-12 | Outpatient (CLI) | payer MEDICARE | LOC: M SOG 07:53 | PROVIDERS: ATTEND Physician Assistant | DX: S72.001A Fracture of unspecified part of neck of right femur, initial encounter for closed fracture (principal) ==

== ENCOUNTER → 2024-11-14 | Outpatient (CLI) | payer MEDICARE | LOC: M SOG 08:12 | PROVIDERS: ATTEND Physician Assistant | DX: Z96.641 Presence of right artificial hip joint (principal) ==

== ENCOUNTER → 2024-12-27 | Outpatient (CLI) | payer MEDICARE | LOC: M SOG 07:53 | PROVIDERS: ATTEND Physician Assistant | DX: S72.001A Fracture of unspecified part of neck of right femur, initial encounter for closed fracture (principal); W18.30XA Fall on same level, unspecified, initial encounter; Y92.009 Unspecified place in unspecified non-institutional (private) residence as the place of occurrence of the external cause ==

== ENCOUNTER → 2025-02-03 | Outpatient (REF) | payer MEDICARE ==
[~2025-02-03] MED LIST changes: -FLOM0.4C39 PO; +TAMS-18 PO
== END ==
LOC: M LAB REF 13:18
PROVIDERS: ATTEND Specialist
DX: D50.9 Iron deficiency anemia, unspecified (principal)